=== PATIENT | male | born 1965 | race Caucasian/White ===

== ENCOUNTER 2018-01-28 09:20 | Day surgery (SDC) | payer BC ==
[~2018-01-28 09:20] MED LIST: Lactated Ringers 1,000 ML IV SCH; Lidocaine 2% 5 ML SDV ONE; Propofol 200 MG/20 ML SDV ONE
--- NOTE | 2018-01-28 10:09 | PCM.PREANE ---
Preanesthetic Assessment - Anesthesia/Transfusion/Family Hx Anesthesia History: Prior Anesthesia Without Reaction Family History of Anesthesia Reaction: No Transfusion History: No Prior Transfusion(s) Intubation History: Unknown - Review of Systems General: No Symptoms Pulmonary: No Symptoms Cardiovascular: No Symptoms Gastrointestinal: No Symptoms Neurological: No Symptoms Other: Reports: None - Physical Assessment Height: 1.91 m Weight: 166.922 kg ASA Class: 3 Mental Status: Alert & Oriented x3 Airway Class: Mallampati = 3 Dentition: Reports: Normal Dentition Thyro-Mental Finger Breadths: 3 Mouth Opening Finger Breadths: 2 ROM/Head Extension: Full Lungs: Clear to Auscultation, Normal Respiratory Effort Cardiovascular: Regular Rate, Regular Rhythm - Allergies Allergies/Adverse Reactions: Allergies Allergy/AdvReac Type Severity Reaction Status Date / Time hydrocodone Allergy makes "my Verified 01/23/18 12:32 skin crawl" - Blood Blood Available: No - Anesthesia Plan Pre-Op Medication Ordered: None - Acknowledgements Anesthesia Type Planned: MAC Pt an Appropriate Candidate for the Planned Anesthesia: Yes Alternatives and Risks of Anesthesia Discussed w Pt/Guardian: Yes Pt/Guardian Understands and Agrees with Anesthesia Plan: Yes PreAnesthesia Questionnaire HEENT History: Reports: Allergic Rhinitis, Hard of Hearing Other HEENT History: has bilateral hearing aides, Cardiovascular History: Reports: High Cholesterol, Hypertension Respiratory History: Reports: Sleep Apnea Other Respiratory History: uses CPAP machine, Gastrointestinal History: Reports: GERD Genitourinary History: Reports: Renal Calculus Musculoskeletal History: Reports: Back Pain, Chronic, Fracture Other Musculoskeletal History: hx fx collarbone Neurological History: Reports: Concussion, Other (See Below) Other Neuro History: Intracranial Aneurysm Repair, Endovascular with [place] coil 2010. Took seizure meds post procedure but no hx of seizures. Endocrine/Metabolic History: Reports: Obesity/BMI 30+ (BMI 46) - Past Surgical History Head Surgeries/Procedures: Reports: Other (See Below) Cardiovascular Surgical History: Reports: Aneurysm Other Cardiovascular Surgeries/Procedures: hx of intracranial aneurysm repair Respiratory Surgical History: Reports: None GI Surgical History: Reports: Appendectomy, Cholecystectomy, Colonoscopy Male Surgical History: Reports: Kidney Stone Extraction, Vasectomy Other Male Surgeries/Procedures: kidney stones removed x3 Other Neurological Surgeries/Procedures: Intracranial Aneurysm repair, Endovascular with [place] coil Musculoskeletal Surgical History: Reports: None - SUBSTANCE USE Smoking Status *Q: Former Smoker (cigars) Tobacco Use Within Last Twelve Months: No Days Per Week of Alcohol Use: 7 Number of Drinks Per Day: 6 Total Drinks Per Week: 42 Recreational Drug Use History: No - HOME MEDS Home Medications: Home Meds Losartan Potassium 100 mg PO DAILY 12/20/15 [History] Simvastatin [Zocor] 20 mg PO DAILY 12/20/15 [History] Loratadine [Claritin] 10 mg PO ASDIRECTED PRN 01/23/18 [History] Multivit-Min/FA/Lycopene/Lut [Centrum Silver Tablet] 1 tab PO DAILY 01/23/18 [ History] - CURRENT (IN HOUSE) MEDS Current Meds: Current Medications Lactated Ringer's (Ringers, Lactated) 1,000 mls @ 125 mls/hr IV ASDIRECTED [place] Last Admin: 01/28/18 09:58 Dose: 125 mls/hr Discontinued Medications Lidocaine (Xylocaine-Mpf 2%) Confirm Administered Dose 5 ml .ROUTE .STK-MED ONE Stop: 01/28/18 07:43 Propofol (Diprivan 20 Ml) Confirm Administered Dose 400 mg .ROUTE .STK-MED ONE Stop: 01/28/18 07:43
[2018-01-28] MEDS ORDERED: Propofol 200 MG/20 ML SDV ONE ×2 (11:16→11:40)
[2018-01-28] MEDS ORDERED: Ondansetron 4 MG Tab.DIS PO PRN (11:51)
--- NOTE | 2018-01-28 11:56 | PCM.OPNOTE ---
- General Post-Op/Procedure Note Date of Surgery/Procedure: 01/28/18 Operative Procedure(s): Colonoscopy with cold, transverse and descending colon polypectomy Pre Op Diagnosis: Personal history of colon polyps Post-Op Diagnosis: Transverse and descending colon polyps Anesthesia Technique: MAC (ASA III) Primary Surgeon: Ivan Corbett Entry Level Java Developer: Freddie Celaya Condition: Good Free Text/Narrative:: Dictation [id number] CPT CODE 92405
[2018-01-28] MEDS ORDERED: Lactated Ringers 1,000 ML IV SCH (12:00)
--- NOTE | 2018-01-28 12:31 | OR ---
SURGEON: Ivan Corbett M.D. DATE OF PROCEDURE: 01/28/2018 OPERATION PERFORMED: Colonoscopy with cold transverse and descending colon polypectomy. PERSONAL CARE HOME ADMINISTRATOR: Dr. Celaya, PGY3. ANESTHESIA: MAC. ASA CLASSIFICATION: III. PREOPERATIVE DIAGNOSIS: Personal history of colon polyps. POSTOPERATIVE DIAGNOSES: 1. Transverse colon polyp. 2. Descending colon polyp. DESCRIPTION OF PROCEDURE: The patient was taken to the endoscopy room and positioned on the endoscopy table in the left lateral decubitus position. Time-out was called for appropriate identification of the patient and procedure. Monitored anesthesia care was provided. The colonoscope was inserted into the rectum and advanced with minimal difficulty to the cecum where the colonoscope was retroflexed to visualize the ascending colon from below. The colonoscope was then straightened and slowly withdrawn. The cecum, ascending colon, hepatic flexure, transverse colon, descending colon, sigmoid colon, and rectum were very well visualized. Two small polyps were encountered, one in the transverse colon and one in the descending colon. Each polyp was removed with cold biopsy forceps. No significant bleeding was noted. Once the colonoscope was withdrawn to the rectum, it was retroflexed to visualize the anal orifice from above. Again, no tumors or polyps were seen and there were no acute hemorrhoidal changes. The colonoscope was then straightened, the rectum aspirated, and the colonoscope removed. The patient tolerated the procedure well and was taken to recovery room in satisfactory condition. SILVIO OSUNA /[id number]
--- NOTE | 2018-01-28 12:32 | PCM48HPAN ---
Post Anesthesia Note - EVALUATION WITHIN 48HRS OF ANESTHETIC Vital Signs in Normal Range: Yes Patient Participated in Evaluation: Yes Respiratory Function Stable: Yes Airway Patent: Yes Cardiovascular Function Stable: Yes Hydration Status Stable: Yes Pain Control Satisfactory: Yes Nausea and Vomiting Control Satisfactory: Yes Mental Status Recovered: Yes Resp Rate: 16 - COMMENTS/OBSERVATIONS Free Text/Narrative:: no anesthesia problems, patient skipped recovery room phase of postoperative care
[2018-01-28 12:36] VITALS: BP 133/83
== END 2018-01-28 12:25 | disposition home or self-care (01) ==
LOC: MW.SDS 09:20
PROVIDERS: ATTEND Surgery
DX: Z12.11 Encounter for screening for malignant neoplasm of colon (principal); D12.3 Benign neoplasm of transverse colon; D12.4 Benign neoplasm of descending colon; E78.00 Pure hypercholesterolemia, unspecified; I10 Essential (primary) hypertension; E66.9 Obesity, unspecified; G47.33 Obstructive sleep apnea (adult) (pediatric); Z99.89 Dependence on other enabling machines and devices; Z88.8 Allergy status to other drugs, medicaments and biological substances; Z79.899 Other long term (current) drug therapy; Z86.010 Personal history of colon polyps; F17.200 Nicotine dependence, unspecified, uncomplicated; Z68.42 Body mass index [BMI] 45.0-49.9, adult
CPT/HCPCS: 45380; J7120; 88305; J2704

== ENCOUNTER 2018-05-04 20:19 | Emergency (ER) | payer BC ==
[2018-05-04] MEDS ORDERED: Ketorolac 60 MG/2 ML SDV IM ONE (20:32)
[2018-05-04] MEDS ORDERED: ceFAZolin 1,000 MG VIAL IM ONE (20:32)
[2018-05-04] MEDS ORDERED: Diphtheria,Pertussis(Acell),Tetanus Vaccine 0.5 ML Syringe IM ONE (20:32)
[2018-05-04] MEDS ORDERED: ceFAZolin 1 GM Vial ONE (20:37)
--- NOTE | 2018-05-04 20:37 | EDM.PDOC ---
ED HPI GENERAL MEDICAL PROBLEM - General Chief Complaint: Laceration Stated Complaint: LACERATION LT THUMB Time Seen by Provider: 05/04/18 20:28 - History of Present Illness INITIAL COMMENTS - FREE TEXT/NARRATIVE: HISTORY AND PHYSICAL: History of present illness: The patient is a 53-year-old male with a history of hypertension who presents with a left thumb laceration/injury that occurred at home while he was using a large butcher scullion knife to separate frozen hamburger patties. The patient is right- hand dominant and says that when he was doing this he jammed the knife into his left thumb and there were no other injuries. Patient is unsure of his last tetanus shot. Patient says that his been bleeding heavily and he is unable to flex his thumb. He has no other injuries to the remainder of the digits of the hand. He was usual state of good health prior to these events Review of systems: As per history of present illness and below otherwise all systems reviewed and negative. Past medical history: As per history of present illness and as reviewed below otherwise noncontributory. Surgical history: As per history of present illness and as reviewed below otherwise noncontributory. Social history: No reported history of drug or alcohol abuse. Family history: As per history of present illness and as reviewed below otherwise noncontributory. Physical exam: General: Well-developed well-nourished man who is nontoxic and vital signs are reviewed by me. He is interactive and cooperative. HEENT: Atraumatic, normocephalic, negative for conjunctival pallor or scleral icterus, mucous membranes moist, throat clear, neck supple, nontender, trachea midline. Lungs: Clear to auscultation, breath sounds equal bilaterally, chest nontender. Heart: S1S2, regular rhythm no overt murmurs Abdomen: Soft, nondistended, nontender. NABS Pelvis: Deferred Genitourinary: Deferred. Rectal: Deferred. Extremities: Atraumatic full range of motion of all extremities with the exception of the left thumb. There are no palpable bony deformities in the left hand or left thumb specifically but there is a large 4 cm laceration on the palmar surface of the PIP joint flexure which is oosing blood. There are no palpable bony deformities or soft tissue swelling of the thumb. The patient is unable to flex the thumb at the PIP flexure. He is able to oppose the thumb. The legs are, negative for cords or calf pain. Neurovascular unremarkable. Neuro: Awake, alert, oriented. Cranial nerves II through XII unremarkable. Cerebellum unremarkable. Motor and sensory unremarkable throughout. Exam nonfocal. Diagnostics: X-ray left thumb Therapeutics: Irrigation and dressing, Ancef IM, Toradol Tdap lido without epinephrine Procedure note: A digital block was applied with lidocaine without epinephrine 1 % by the nurse practitioner. The patient tolerated this well. 2038: Case was discussed with the hand surgeon at [facility] in [place], Dr. Hernandez . He would like us to tack the laceration shot and for the patient to come to his office at 8:00 AM nothing by mouth after midnight so he can have a delayed repair. He also wants patient on antibiotics. Patient is aware of this conversation and is very comfortable with this. Procedure note: After the wound was irrigated by nursing earlier and the block was placed as above the wound was explored and tacked closed using simple interrupted sutures for a total number of # 4 sutures of 4-0 nylon. The patient tolerated this procedure well and there were no complications. Bacitracin was applied and a gauze dressing. Suture was performed by Sharon Tejada NP. This wound is complex but will not be repaired completely here and will be handled by the hand surgeon on Sunday. Impression: Left thumb laceration with flexor tendon injury Definitive disposition and diagnosis as appropriate pending reevaluation and review of above. left thumb Pain Score (Numeric/FACES): 5 - Related Data Allergies Allergy/AdvReac Type Severity Reaction Status Date / Time hydrocodone Allergy Agitation Verified 05/04/18 20:32 Home Meds: Home Meds Losartan Potassium 100 mg PO DAILY 12/20/15 [History] Simvastatin [Zocor] 20 mg PO DAILY 12/20/15 [History] Multivit-Min/FA/Lycopene/Lut [Centrum Silver Tablet] 0 mg PO DAILY 01/23/18 [ History] Past Medical History HEENT History: Reports: Allergic Rhinitis, Hard of Hearing Other HEENT History: has bilateral hearing aides, Cardiovascular History: Reports: High Cholesterol, Hypertension Respiratory History: Reports: Sleep Apnea Other Respiratory History: uses CPAP machine, Gastrointestinal History: Reports: GERD Genitourinary History: Reports: Renal Calculus Musculoskeletal History: Reports: Back Pain, Chronic, Fracture Other Musculoskeletal History: hx fx collarbone Neurological History: Reports: Concussion, Other (See Below) Other Neuro History: Intracranial Aneurysm Repair, Endovascular with [place] coil 2010. Took seizure meds post procedure but no hx of seizures. Endocrine/Metabolic History: Reports: Obesity/BMI 30+ (BMI 46) - Past Surgical History HEENT Surgical History: ED ROS GENERAL - Review of Systems Review Of Systems: ROS reveals no pertinent complaints other than HPI. ED EXAM, SKIN/RASH Exam: See Below (See dictation) Course - Vital Signs Last Recorded V/S: Last Vital Signs Temp 36.2 C 05/04/18 20:27 Pulse 91 05/04/18 20:27 Resp 20 05/04/18 20:27 BP 169/102 H 05/04/18 20:27 Pulse Ox 97 05/04/18 20:27 - Orders/Labs/Meds Orders: Active Orders 24 hr Category Date Time Status Communication Order [RC] STAT Care 05/04/18 20:33 Active Vaccines to be Administered [RC] PER UNIT ROUTINE Care 05/04/18 20:32 Active Fingers Thumb Lt FA [CR] Stat Exams 05/04/18 20:31 Taken Meds: Medications Discontinued Medications Generic Name Dose Route Start Last Admin Trade Name Freq PRN Reason Stop Dose Admin Cefazolin Sodium 1,000 mg 05/04/18 20:32 05/04/18 20:43 Ancef IM 05/04/18 20:33 2,000 mg ONETIME ONE Administration Cefazolin Sodium Confirm 05/04/18 20:37 05/04/18 21:13 Ancef Administered 05/04/18 20:38 Not Given Dose 2 gm .ROUTE .STK-MED ONE Diphtheria/Tetanus/Acell Pertussis 0.5 ml 05/04/18 20:32 05/04/18 20:42 Adacel IM 05/04/18 20:33 0.5 ml .ONCE ONE Administration Sterile Water Confirm 05/04/18 20:38 05/04/18 21:14 Sterile Water For Injection Administered 05/04/18 20:39 Not Given Dose 20 mls @ as directed .ROUTE .STK-MED ONE Lidocaine HCl Confirm 05/04/18 21:00 05/04/18 21:04 Xylocaine-Mpf 1% Administered 05/04/18 21:01 5 mls/hr Dose Administration 10 mls @ as directed .ROUTE .STK-MED ONE Ketorolac Tromethamine 60 mg 05/04/18 20:32 05/04/18 20:41 Toradol IM 05/04/18 20:33 60 mg ONETIME ONE Administration Lidocaine HCl 10 ml 05/04/18 20:55 05/04/18 21:14 Xylocaine 1% INJECT 05/04/18 20:56 Not Given ONETIME ONE Departure - Departure Time of Disposition: 21:45 Disposition: Home, Self-Care 01 Condition: Good Clinical Impression: Laceration of left thumb Qualifiers: Encounter type: initial encounter Damage to nail status: without damage Foreign body presence: without foreign body Qualified Code(s): S61.012A - Laceration without foreign body of left thumb without damage to nail, initial encounter - Discharge Information Referrals: PCP,None [Primary Care Provider] - Forms: ED Department Discharge Additional Instructions: The following information is given to patients seen in the emergency department who are being discharged to home. This information is to outline your options for follow-up care. We provide all patients seen in our emergency department with a follow-up referral. The need for follow-up, as well as the timing and circumstances, are variable depending upon the specifics of your emergency department visit. If you don't have a primary care physician on staff, we will provide you with a referral. We always advise you to contact your personal physician following an emergency department visit to inform them of the circumstance of the visit and for follow-up with them and/or the need for any referrals to a consulting specialist. The emergency department will also refer you to a specialist when appropriate. This referral assures that you have the opportunity for followup care with a specialist. All of these measure are taken in an effort to provide you with optimal care, which includes your followup. Under all circumstances we always encourage you to contact your private physician who remains a resource for coordinating your care. When calling for followup care, please make the office aware that this follow-up is from your recent emergency room visit. If for any reason you are refused follow-up, please contact the [facility] emergency department at and ask to speak to the emergency department charge nurse. [facility] Primary care- [place] [address] Hernandez office at 8 AM on Sunday to have your wound repaired area and please do not eat or drink anything after midnight for the repair will have to be delayed. Please take all medications as prescribed and needed. Please take Keflex until it is finished. Leave the dressing on until you're seen by the hand specialist You have Been given the address of the hand specialist by nursing. - My Orders Last 24 Hours: My Active Orders 05/04/18 20:31 Fingers Thumb Lt FA [CR] Stat 05/04/18 20:32 Vaccines to be Administered [RC] PER UNIT ROUTINE 05/04/18 20:33 Communication Order [RC] STAT - Assessment/Plan Last 24 Hours: My Active Orders 05/04/18 20:31 Fingers Thumb Lt FA [CR] Stat 05/04/18 20:32 Vaccines to be Administered [RC] PER UNIT ROUTINE 05/04/18 20:33 Communication Order [RC] STAT
[2018-05-04] MEDS ORDERED: Water For Injection, Sterile 20 ML ONE (20:38)
[2018-05-04] MEDS ORDERED: Lidocaine 1% 10 ML MDV INJECT ONE (20:55)
[2018-05-04] MEDS ORDERED: Bacitracin Oint 1 GM U/D Packet TOP ONE (21:31)
[2018-05-04 22:46] VITALS: BP 149/86
--- NOTE | 2018-05-06 18:14 | CR ---
EXAM DATE: 05/04/18 PATIENT'S AGE: 53 Patient: ROSELYN FRAIRE Facility: [place], [place] Site . Site : 1965 Study: XRay Extremity Left [id number] thumb-05/04/2018 9:02:36 PM Ordering Physician: Doctor Moses Final Report: INDICATION: Pain after trauma. TECHNIQUE: Three views. 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 No fracture or bone lesion. Suggestion of soft tissue injury and swelling at the pad of the thumb. Dictated by Aubrey Hightower MD @ May 04 2018 9:06PM (Electronic Signature) Report Signed by Proxy. MERI
== END 2018-05-04 21:50 | disposition home or self-care (01) ==
LOC: MW.ED 20:19
DX: S61.012A Laceration without foreign body of left thumb without damage to nail, initial encounter (principal); I10 Essential (primary) hypertension; W26.0XXA Contact with knife, initial encounter; Z23 Encounter for immunization; Z88.5 Allergy status to narcotic agent; Z79.899 Other long term (current) drug therapy
CPT/HCPCS: 12002; 73140; 90471; 90715; 96372; 99283; J0690; J1885

== ENCOUNTER 2019-12-01 21:37 | Emergency (ER) | payer OTHER ==
[2019-12-01 22:18] VITALS: BP 128/79; PULSE 63
--- NOTE | 2019-12-01 22:28 | EDM.PDOC ---
ED HPI GENERAL MEDICAL PROBLEM - General Chief Complaint: Back Pain or Injury Stated Complaint: FELL ON ICE Time Seen by Provider: 12/01/19 22:21 - History of Present Illness INITIAL COMMENTS - FREE TEXT/NARRATIVE: HISTORY AND PHYSICAL: History of present illness: The patient is a 54-year-old male who presents after slipping and falling on the ice while leaving the gym and complaining of right thoracic back pain right knee pain and left ankle pain. The patient said he had a normal day and had no systemic complaints prior to the slip and fall and he did not hit his head pass out or blackout and takes no anticoagulation therapy. He says that he landed on the right thoracic back which is where the most pain is and he also thinks he twisted his right knee but he is not concerned as much about the knee and of the left ankle he says he just thinks that he hit into the other side and he is not concerned at all about that. He tried heat and ice and he also took ibuprofen and is concerned because the pain is persisting and he wanted evaluation. He has no shortness of breath or chest pain no rib pain and no pelvis pain. He has no lumbar or spinal pain. Review of systems: As per history of present illness and below otherwise all systems reviewed and negative. Past medical history: As per history of present illness and as reviewed below otherwise noncontributory. Surgical history: As per history of present illness and as reviewed below otherwise noncontributory. Social history: No reported history of drug or alcohol abuse. Family history: As per history of present illness and as reviewed below otherwise noncontributory. Physical exam: General: Well-developed well-nourished overweight man who is nontoxic and is slow to move due to discomfort in his mid back. Vital signs are noted by me HEENT: Atraumatic, normocephalic, pupils reactive, negative for conjunctival pallor or scleral icterus, mucous membranes moist, throat clear, neck supple, nontender, trachea midline. No midline step-offs tenderness defects of the cervical spine Lungs: Clear to auscultation, breath sounds equal bilaterally, chest nontender. There is no rib tenderness defects or deformities and no crepitus Heart: S1S2, regular, rate and rhythm no overt murmurs Abdomen: Soft, nondistended, nontender. . Negative for costovertebral tenderness. Pelvis: Stable nontender. Genitourinary: Deferred. Rectal: Deferred. Extremities: Atraumatic, pain-free motion of all extremities including the lower extremities and there are some palpable arthritic changes of the right knee with some mild medial tenderness but no ecchymosis erythema bony defects or deformities and no effusion is appreciated. The proximal right hip and distal tib-fib and ankle are intact without tenderness defects or deformities. The left ankle is also nontender without defect deformities or soft tissue swelling. Neurovascular unremarkable. Neuro: Awake, alert, oriented. Cranial nerves II through XII unremarkable. Cerebellum unremarkable. Motor and sensory unremarkable throughout. Exam nonfocal. Back: There are no midline step-offs defects or deformities but there is some mild soft tissue swelling at the mid thoracic spine to the right and tenderness in this region. There is no erythema or ecchymosis Diagnostics: XR right knee, CT scan of the thoracic spine, the patient declined left ankle x- ray Therapeutics: Declined meds initially but then subsequently I gave him Toradol Impression: FAll with lumbar back contusion, knee contusion Definitive disposition and diagnosis as appropriate pending reevaluation and review of above. 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 Therapy, Heat Therapy, Other Medication(s) Right Back Pain Score (Numeric/FACES): 10 - Related Data Allergies Allergy/AdvReac Type Severity Reaction Status Date / Time hydrocodone Allergy Agitation Verified 05/04/18 20:32 Home Meds: Home Meds Losartan Potassium 100 mg PO DAILY 12/20/15 [History] Simvastatin [Zocor] 20 mg PO DAILY 12/20/15 [History] Multivit-Min/FA/Lycopen/Lutein [Centrum Silver Tablet] 0 mg PO DAILY 01/23/18 [ History] Past Medical History - Past Health History Medical/Surgical History: Denies Medical/Surgical History HEENT History: Reports: Allergic Rhinitis, Hard of Hearing Other HEENT History: has bilateral hearing aides, Cardiovascular History: Reports: High Cholesterol, Hypertension Respiratory History: Reports: Sleep Apnea Other Respiratory History: uses CPAP machine, Gastrointestinal History: Reports: GERD Genitourinary History: Reports: Renal Calculus Musculoskeletal History: Reports: Back Pain, Chronic, Fracture Other Musculoskeletal History: hx fx collarbone Neurological History: Reports: Concussion, Other (See Below) Other Neuro History: Intracranial Aneurysm Repair, Endovascular with [place] coil 2010. Took seizure meds post procedure but no hx of seizures. Endocrine/Metabolic History: Reports: Obesity/BMI 30+ (BMI 46) - Infectious Disease History Infectious Disease History: Reports: Shingles - Past Surgical History HEENT Surgical History: Social & Family History - Family History Family Medical History: Noncontributory - Tobacco Use Smoking Status *Q: Former Smoker Years of Tobacco use: 20 Packs/Tins Daily: 1 Used Tobacco, but Quit: Yes Month/Year Tobacco Last Used: 1999 Second Hand Smoke Exposure: No - Caffeine Use Caffeine Use: Reports: Coffee, Soda Caffeine Use Comment: 2 cups/day coffee - Alcohol Use Date of Last Drink: 12/01/19 Time of Last Drink: 20:00 - Recreational Drug Use Recreational Drug Use: No ED ROS GENERAL - Review of Systems Review Of Systems: Comprehensive ROS is negative, except as noted in HPI. ED EXAM, GENERAL - Physical Exam Exam: See Below (see Dictation) Course - Vital Signs Last Recorded V/S: Last Vital Signs Temp 37.4 C 12/01/19 22:17 Pulse 63 12/01/19 22:17 Resp 20 12/01/19 22:17 BP 128/79 12/01/19 22:17 Pulse Ox 97 12/01/19 22:17 - Orders/Labs/Meds Meds: Medications Discontinued Medications Generic Name Dose Route Start Last Admin Trade Name Monica PRN Reason Stop Dose Admin Ketorolac Tromethamine 60 mg 12/01/19 23:32 12/01/19 23:43 Toradol IM 12/01/19 23:33 60 mg ONETIME ONE Administration Departure - Departure Time of Disposition: 00:03 Disposition: Home, Self-Care 01 Condition: Good Clinical Impression: Fall Qualifiers: Encounter type: initial encounter Qualified Code(s): W19.XXXA - Unspecified fall, initial encounter Contusion, back Qualifiers: Encounter type: initial encounter Laterality: right Qualified Code(s): S20.221A - Contusion of right back wall of thorax, initial encounter - Discharge Information Referrals: Sravan De Dios MD [Primary Care Provider] - Forms: ED Department Discharge Additional Instructions: The following information is given to patients seen in the emergency department who are being discharged to home. This information is to outline your options for follow-up care. We provide all patients seen in our emergency department with a follow-up referral. The need for follow-up, as well as the timing and circumstances, are variable depending upon the specifics of your emergency department visit. If you don't have a primary care physician on staff, we will provide you with a referral. We always advise you to contact your personal physician following an emergency department visit to inform them of the circumstance of the visit and for follow-up with them and/or the need for any referrals to a consulting specialist. The emergency department will also refer you to a specialist when appropriate. This referral assures that you have the opportunity for followup care with a specialist. All of these measure are taken in an effort to provide you with optimal care, which includes your followup. Under all circumstances we always encourage you to contact your private physician who remains a resource for coordinating your care. When calling for followup care, please make the office aware that this follow-up is from your recent emergency room visit. If for any reason you are refused follow-up, please contact the [facility] emergency department at and ask to speak to the emergency department charge nurse. [facility] Primary care- Internal Medicine and Family [address] [address] Ice to area for the next 8 to 12 hours and then alternate ice and heat. Use [id number] ibuprofen 800 mg every 8 hours and add Tylenol as you choose. Fill and use the tramadol prescription you have been given as needed and please schedule follow-up appointment with your provider in the clinic. Return to ER as needed and as discussed Sepsis Event Note - Evaluation Sepsis Screening Result: No Definite Risk - Focused Exam Vital Signs: Vital Signs Temp Pulse Resp BP Pulse Ox 12/01/19 22:17 37.4 C 63 20 128/79 97 Date Exam was Performed: 12/02/19 Time Exam was Performed: 00:03
[2019-12-01] MEDS ORDERED: Ketorolac 60 MG/2 ML SDV IM ONE (23:32)
--- NOTE | 2019-12-01 23:39 | CR ---
INDICATION: Slipped and fell on ice. COMPARISON: None. FINDINGS/IMPRESSION: Right knee, three views. No acute fracture, dislocation, or other acute abnormality of the right knee. No definite joint effusion in the suprapatellar bursa. Minimal knee degenerative changes. Dictated by Blade Ramires MD @ 12/01/2019 11:34:45 PM Dictated by: Blade Ramires MD @ 12/01/2019 23:37:07 (Electronically Signed)
--- NOTE | 2019-12-01 23:41 | CT ---
INDICATION: Lower right sided thoracic pain following fall. Pain around costovertebral junction. CT THORACIC SPINE WITHOUT CONTRAST TECHNIQUE: Multidetector axial CT imaging was performed through the thoracic spine, without contrast. Sagittal and coronal reconstructions were generated. FINDINGS: No acute fractures are identified. No destructive lesions of bone are demonstrated. Osseous alignment is within normal limits and no subluxation is seen. Scattered mild degenerative changes are present. Paravertebral soft tissues are unremarkable. IMPRESSION: No fracture, subluxation, or other acute finding identified. OLVIN BEGUM MD [employer] Dictated by: Blade Begum MD @ 12/01/2019 23:38:35 (Electronically Signed)
== END 2019-12-02 00:20 | disposition home or self-care (01) ==
LOC: MW.ED 21:37
DX: S20.221A Contusion of right back wall of thorax, initial encounter (principal); S80.01XA Contusion of right knee, initial encounter; I10 Essential (primary) hypertension; E66.9 Obesity, unspecified; Z88.8 Allergy status to other drugs, medicaments and biological substances; Z87.891 Personal history of nicotine dependence; W00.0XXA Fall on same level due to ice and snow, initial encounter
CPT/HCPCS: 72128; 73562; 96372; 99284; J1885; 99283